=== PATIENT | female | born 1990 | race Two or more races ===

== ENCOUNTER 2024-01-10 12:15 | Emergency (ER) | payer BC, MEDICAID ==
[~2024-01-10] VITALS: Ht 154.9 cm; Wt 89.0 kg
[2024-01-10 12:33] VITALS: BP 139/76; PULSE 79; RESP 16; O2SAT 97
[2024-01-10] MEDS ORDERED: CEPH250C PO (14:57)
== END 2024-01-10 16:00 | disposition home or self-care (01) ==
LOC: ER 12:15
DX: T81.89XA Other complications of procedures, not elsewhere classified, initial encounter (principal)
CPT/HCPCS: 82962